=== PATIENT | female | born 2000 ===

== ENCOUNTER 2022-04-02 12:52 | Emergency (ER) | payer SELFPAY ==
[2022-04-02 14:11] VITALS: BP 124/72; PULSE 86; RESP 19; TEMP 36.5; O2SAT 100; BMI 34.7
== END 2022-04-02 17:26 | disposition left against medical advice (07) ==
PROVIDERS: Emergency Provider Emergency Medicine
DX: K08.89 Other specified disorders of teeth and supporting structures (principal)
CPT/HCPCS: 99281

== ENCOUNTER 2023-03-06 19:55 | Emergency (ER) | payer OTHER, SELFPAY ==
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
[2023-03-06 20:04] VITALS: BP 170/110; PULSE 98; O2SAT 98
[2023-03-06 20:11] VITALS: BP 145/79; PULSE 80; RESP 18; TEMP 36.8; O2SAT 98; BMI 35.2
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
[2023-03-06] MEDS: Morphine Sulfate 4 MG/ML CARTRIDGE IVPUSH (22:10)
[2023-03-06] MEDS: ondansetron HCL 4 MG/2 ML VIAL IVPUSH (22:16)
[2023-03-06 22:17] LABS: MANUAL DIFF FLAG NO
[2023-03-06 22:18] LABS: Basophils Percent Auto 0.3 % (0-2); Eosinophils Absolute Auto 0.1 X10*3/uL (0.0-0.4); Eosinophils Percent Auto 0.6 % (0-4); Hematocrit 40.1 % (37.0-47.0); Hemoglobin 13.4 g/dl (12.0-16.0); Imm Gran Abs Auto 0.03 X10*3/uL (0.00-0.03); Imm Gran Pct Auto 0.3 % (0.0-0.4); Lymphocytes Absolute Auto 1.8 X10*3/uL (1.2-4.9); Lymphocytes Percent Auto 17.7 % (20-40); Mean Corpuscular HGB Conc 33.4 g/dl (31.0-35.0); Mean Corpuscular Hemoglobin 28.6 pg (27.0-33.0); Mean Corpuscular Volume 85.7 fL (80.0-98.0); Mean Platelet Volume 9.1 fL (9.4-12.3); Monocytes Absolute Auto 0.7 X10*3/uL (0.1-1.2); Monocytes Percent Auto 6.7 % (2-11); Neutrophils Absolute Auto 7.5 x10*3/uL (2.0-8.3); Neutrophils Percent Auto 74.4 % (45-73); Platelet Count 343 X10*3/uL (160-400); Red Blood Count 4.68 X10*6/uL (4.20-5.50); Red Cell Distribution Width 12.8 % (11.0-16.0)
[2023-03-06 22:24] LABS: INTERNATIONAL NORM RATIO 0.9 (0.9-1.1); Prothrombin Time 11.3 SEC (11.1-13.3)
[2023-03-06 22:26] LABS: Partial Thromboplastin Time 32.6 SEC (26.0-36.4)
[2023-03-06 22:42] LABS: Alanine Aminotransferase 35 U/L (0-31); Albumin Level 3.8 g/dL (3.5-5.0); Alkaline Phosphatase 158 U/L (39-117); Anion Gap 17 (12-20); Aspartate Amino Transferase 25 U/L (5-31); Bilirubin Total 0.2 mg/dL (0.0-1.0); Blood Urea Nitrogen 14 mg/dL (9-16); Calcium 9.5 mg/dL (8.4-10.2); Carbon Dioxide 18 mmol/L (22-29); Chloride 108 mmol/L (96-108); Creatinine Clr Calc Pharmacy 126.5; Estimated Glomerular Filt Rate > 60; Glucose Random 95 mg/dL (60-115); HCG Quantitative < 2 mIU/mL; Sodium 139 mmol/L (135-145); Total Protein 7.1 g/dL (6.5-8.0)
--- NOTE | 2023-03-06 23:46 | MHC.EDTECH ---
Call out to [facility] transfer line @[phone] gave demographics to Kelly.
--- NOTE | 2023-03-07 | PC.NURSE ---
pt in no apparent distress, A&Ox4, speaking clear full sentences, neuros intact. reports relief of pain from morphine administration. pain down to 0. pt to be transferred to [facility] ED for further evaluation.
[2023-03-07 00:02] LABS: IDNOW Serial# 6674DD1D
[2023-03-07 00:03] LABS: COVID-19 Test Negative (Negative)
[2023-03-07 00:07] VITALS: BP 121/71; PULSE 73; RESP 17; TEMP 36.7; O2SAT 96
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
== END 2023-03-07 00:40 | disposition short-term general hospital (02) ==
PROVIDERS: Emergency Provider Emergency Medicine Emergency Medical Services
DX: S06.2XAA Diffuse traumatic brain injury with loss of consciousness status unknown, initial encounter (principal); R51.9 Headache, unspecified; M54.2 Cervicalgia; V43.52XA Car driver injured in collision with other type car in traffic accident, initial encounter; Y93.9 Activity, unspecified; Y92.410 Unspecified street and highway as the place of occurrence of the external cause; Y99.9 Unspecified external cause status; Z20.822 Contact with and (suspected) exposure to COVID-19; Z20.828 Contact with and (suspected) exposure to other viral communicable diseases; Z79.899 Other long term (current) drug therapy
CPT/HCPCS: 36415; 70450; 72125; 80053; 84702; 85025; 85610; 85730; 87635; 96374; 96375; 99285; J2270; J2405